=== PATIENT | female | born 1925 | race Caucasian/White ===

== ENCOUNTER 2016-10-17 12:42 | Inpatient (IN) | payer MEDICARE, OTHER ==
[~2016-10-17] VITALS: Ht 157.5 cm; Wt 71.5 kg
[2016-10-17] VITALS (10 sets, daily range): BP systolic 144–192; BP diastolic 65–85; PULSE 64–74; RESP 16–20; O2SAT 93–97
--- NOTE | 2016-10-17 13:02 | ED.REPORT ---
HPI-Stroke / CVA Oct 17, 2016 ED Provider: Dr. Kamran Wall MD An 89 year old female with a history of hypothyroidism and hypertension presents to the ED complaining of localized weakness to her right side that began at 0330. Associated symptoms include ataxia and discomfort in the right leg. Last known well 329. Patient states that her symptoms persisted to 0900 and she took 2 Aspirin. She was seen at Urgent Care this morning and was sent to the ED for further evaluation with concern for CVA. She also states that she experienced some discomfort when swallowing 2 days ago that has since improved. She denies history of TIA or back injury. Patient denies dizziness or any other concerning neurological symptoms at this time. Nursing Notes Stated Complaint: WEAKNESS/POSS TIA Chief Complaint: Neuro Symptoms/ Deficits Nursing Notes Reviewed: Yes Allergies: Coded Allergies: No Known Allergies (Unverified , 10/17/16) Scheduled ([Vit D3]) 2,000 PO BID (Reported) Amlodipine (Amlodipine) 10 Mg Tablet 10 MG PO DAILY (Reported) Aspirin Chew (Aspirin Chew) 81 Mg Chew 81 MG PO DAILY (Reported) Calcium Carbonate (Calcium) 600 Mg Tablet 600 MG PO BID (Reported) Lansoprazole (Lansoprazole) 30 Mg Capsule.dr 30 MG PO DAILY (Reported) Levothyroxine (Levothyroxine) 125 Mcg Tablet 125 MCG PO DAILY (Reported) Lutein (Lutein) 20 Mg Tablet 20 MG PO BID (Reported) Metoprolol Succinate ER (Metoprolol Succinate ER) 200 Mg Tab.er.24h 200 MG PO DAILY (Reported) Multivits-Min/FA/Lycopene/Lut (Centrum Silver Tablet) 1 Each Tablet 1 EACH PO DAILY (Reported) Omeprazole Magnesium (Prilosec Otc) 20 Mg Tablet.dr 20 MG PO DAILY (Reported) Red Yeast Rice (Red Yeast Rice) 600 Mg Capsule 600 MG PO BID (Reported) Ubidecarenone (Co Q-10) 300 Mg Capsule 300 MG PO DAILY (Reported) General Time Seen by Provider: 13:02 Chief Complaint Weakness Right-sided Hx Obtained From: Patient Arrived By: Walk-in Time last known well 033 Sudden in Onset?: No Symptom Duration: Since onset Progression Since Onset: Gradually improving Location: : Leg Quality: Painful Severity: Current: Mild Severity: Maximum: Mild Associated with: Reports: Gait problem Pertinent Negative: Pt denies other symptoms Recent Healthcare: No recent doctor visit, No recent hospitalization Risk Factors )( TPA Administration/Criteria Stroke Thrombolytic Therapy : TPA Considered: No TPA Administered Intravenously: No, not indicated NIH Stroke Scale Level of Consciousness: Alert and responsive (0) Ask Month & Age: Both questions right (0) Open/Close Eyes/Hand [employer]: Performs both tasks (0) Horizontal EO Movements: None (0) Visual Medrano: No visual loss (0) Facial Palsy: Normal symmetry (0) Right Arm Motor Drift (10s): No drift 10 sec (0) Left Arm Motor Drift (10s): No drift 10 sec (0) Right Leg Motor Drift (5s): No drift 5 sec (0) Left Leg Motor Drift (5s): No drift 5 sec (0) Limb Ataxia FNF/Heel-Michelle: No ataxia (0) Sensation (Arms/Legs/Face): No sensory loss (0) Language Aphasia: No aphasia, normal (0) Dysarthria: No dysarthria, normal (0) Extinction/Inattention: No exctinct/inattent (0) NIHSS Score: 0 Time NIHSS Performed: 13:11 )( CVA Risk Stratification No Prior CVA/TIA Risk factors reviewed Past Medical History Past Medical History Macular Degeneration (Legally blind) Thyroid disease Denies: Transient ischemic attack Past Surgical History None reported. Smoking History Unknown if Ever Smoker Social History Alcohol Use: "Social" Other Social History: Good social support, Local resident Ambulatory Status Independent Review of Systems Constitutional: Denies: Chills, Fever Respiratory: Denies: Shortness of breath Cardiovascular: Denies: Chest pain GI: Denies: Vomiting Neurologic: Reports: Focal weakness (Right leg and hip ), Problem walking, Denies: Change LOC, Dizziness Complete sys rev & neg: except as marked. Physical Exam Initial Vital Signs Vital Signs (First) Date Time Temp Pulse Resp B/P Pulse Ox O2 Delivery O2 Flow Rate FiO2 10/17/16 12:48 36.5 72 16 179/79 97 Room Air Initial VS: Reviewed Extremities: Vascular intact, Neuro intact, No swelling, No tenderness Skin: Warm, Dry, No cyanosis Psychiatric: Mood/affect normal, Behavior normal, Normal thought content General/Constitutional: Awake, Alert Head / Eyes: Atraumatic, Normocephalic, PERRL Neck: Atraumatic, Supple Respiratory / Chest: Atraumatic, Breath sounds NL, Breath sounds = bilat, No respiratory distress Cardiovascular: Heart rate NL, Regular rhythm, Heart sounds NL Neurologic: Oriented X3, Speech NL, No motor deficits, No sensory deficits, CN II - XII intact NEURO: See NIH in Risk Section Interpretation & Diagnostics Lab Results Interpretation Result Diagram: 10/17/16 1410 10/17/16 1410 Test 10/17/16 14:10 10/17/16 14:32 10/17/16 14:37 10/17/16 15:45 White Blood Count 7.3th/mm3 (3.8-10.1) Red Blood Count 4.79mil/mm3 (3.90-5.20) Hemoglobin 14.6g/dL (12.0-15.6) Hematocrit 43.7% (35.0-46.0) Mean Corpuscular Volume 91.2fL (81-100) Mean Corpuscular Hemoglobin 30.5pg (27.0-35.0) Mean Corpuscular Hemoglobin Concent 33.4% (32.0-37.0) Red Cell Distribution Width 14.3% (12.3-15.4) Platelet Count 231bil/L (150-400) Neutrophils (%) (Auto) 52.6% (40-74) Lymphocytes (%) (Auto) 31.8% (14-46) Monocytes (%) (Auto) 10.4% (4-12) Eosinophils (%) (Auto) 4.5% (0-5) Basophils (%) (Auto) 0.4% (0-3) Activated Partial Thromboplast Time 32.1sec (22.8-33.0) Sodium Level 140mEq/L (134-144) Potassium Level 4.2mEq/L (3.5-5.2) Chloride Level 101mEq/L (97-108) Carbon Dioxide Level 23mmol/L (18-29) Blood Urea Nitrogen 19mg/dL (8-27) Creatinine 0.61mg/dL (0.57-1.00) Estimat Glomerular Filtration Rate 132mL/min (>59) Glucose Level 109mg/dL (60-99) Calcium Level 9.9mg/dL (8.5-10.1) Total Bilirubin 0.6mg/dL (0.0-1.2) Aspartate Amino Transf (AST/SGOT) 27U/L (0-50) Alanine Aminotransferase (ALT/SGPT) 21U/L (0-32) Alkaline Phosphatase 56U/L (25-165) Troponin T < 0.010ug/L (0.0-0.011) Total Protein 7.7g/dL (6.4-8.4) Albumin 4.3g/dL (3.4-5.0) Magnesium Level 2.3mg/dL (1.6-2.6) Triglycerides Level 183mg/dL (0-149) Cholesterol Level 208mg/dL (100-199) LDL Cholesterol, Calculated 108.400mg/dL (0-99) VLDL Cholesterol 36.600mg/dL HDL Cholesterol 63mg/dL (>39) Cholesterol/HDL Ratio 3.30 (0.0-4.4) Urine Color Yellow (YELLOW) Urine Appearance Clear (CLEAR,HAZY) Urine pH 6.5 (5.0-8.0) Urine Specific [place] <1.005 (1.003-1.035) Urine Protein Negativemg/dL (NEG,TRACE) Urine Glucose (UA) Negativemg/dL (NEGATIVE) Urine Ketones Negativemg/dL (NEGATIVE) Urine Occult Blood Negative (NEGATIVE) Urine Nitrite Negative (NEGATIVE) Urine Bilirubin Negative (NEGATIVE) Urine Urobilinogen Normalmg/dL (NORMAL) Urine Leukocyte Esterase Trace (NEGATIVE) Urine RBC 0-2/hpf (0-2) Urine WBC 0-5/hpf (0-5) Urine Epithelial Cells Few/hpf (NONE-MOD) Urine Crystals None seen (NONE SEEN) Urine Bacteria Few/hpf (NONE-FEW) Urine Hyaline Casts None/lpf (NONE) Urine Granular Casts None seen (NONE SEEN) Urine Waxy Casts None seen (NONE SEEN) Urine Red Blood Cell Casts None seen (NONE SEEN) Urine White Blood Cell Casts None seen (NONE SEEN) Urine Mucus None seen (None Seen) Urine Trichomonas None seen (NONE SEEN) Urine Yeast None (NONE SEEN) Urinalysis Comment None Urine Culture Reflexed Indicated Prothrombin Time 10.2sec (8.1-12.5) Prothromb Time International Ratio 0.95ratio ECG Interpretation ECG Interpretation: Sinus Rhythm Rate 64 Anterior infarct, old Time: 01:41 Interpreted by: ED physician CT Head Interpretation IMPRESSION: 1. No acute intracranial abnormality. 2. 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 Dictated by: Luda Walker M.D. on 10/17/2016 at 13:40 Study: Head CT no contrast Interpretation / Wet Read by: Interpret - Radiologist Re-Eval/Medical Decision Med Decision/Clinical Course 89-year-old female with a history of hypothyroidism , hypertension, and GERD presents with trouble walking in the middle the night when she awoke to urinate. Upon awaking at 9 AM she was again unable to walk with her right leg and noticed significant weakness. She denies any pain. She has no other symptoms. Her NIH score 0, however she has significant difficulty with ambulation. She was not in the therapeutic window for TPA as we do not know her last known well time. Patient did take 2 adult aspirin around 9 AM with her symptoms. CT shows chronic versus subacute occipital lobe infarct. Her pressures have been anywhere between 120s systolic up to 200 systolic. We are allowing permissive hypertension. Patient will be admitted for stroke workup and monitoring. Strangely she has an INR of 2.6 despite taking any anticoagulation. I sent a repeat lab draw for recheck. Re-Evaluation/Progress : Time of Eval: 14:29 Patient Status: Condition improved Re-Evaluation/Progress Note: Patient is rechecked and is exhibiting an abnormal gait. She is informed of her results and the recommendation to admit. Patient agrees to obtain more imaging. Her BP spikes slightly and all questions are addressed. Consultation : Referral / Consult Name: Ramy Sy MD Consulted With: Hospitalist Call Returned at: 16:05 Environmental Management Specialist: Will see patient, Agrees with eval, Agrees with plan, Accepts admit Counseled Regarding: Diagnosis, Lab results, Need for admission Patient Discharge & Departure Impression: Primary Impression: CVA (cerebral vascular accident) CVA mechanism: unspecified Qualified Code: I63.9 - Cerebral infarction, unspecified Additional Impressions: Right leg weakness Hypertension Hypertension type: other secondary hypertension Hypertension goal: unspecified goal Qualified Code: I15.8 - Other secondary hypertension Disposition: ADMITTED TO HOSPITAL Discharge Condition All VS Reviewed: Yes Condition: Improved Referrals: Eugene Kim DO (PCP) Brodie Turcios MD (Family) Scribe Attestation Portions of this note were transcribed by Modesta Mohr. Dr. Mae Singh personally performed the history, physical exam and medical decision-making; I reviewed and confirmed the accuracy of the information in the transcribed note. Signed by: Jarrett Somers, 10/17/16 [id number]. copies to: Eugene Kim DO; Brodie Turcios MD, Gary R DO Oct 17, 2016 13:02 MODESTA MOHR Oct 17, 2016 13:05
--- NOTE | 2016-10-17 13:42 | DRSVH ---
PROCEDURE: CT BRAIN WITHOUT CONTRAST ([id number]) INDICATIONS: Stroke TECHNIQUE: Noncontrast 4.5 mm thick angled axial sections acquired from the foramen magnum to the vertex, with c oronal reformats. COMPARISON: None. FINDINGS: Image quality: Excellent. CSF spaces: Basal cisterns are patent. No extra-axial fluid collections. The ventricles are symmet felix in size and shape. Brain: No intracranial bleeds or masses. Moderate chronic versus subacute left occipital lobe infar ct. There is cerebral volume loss for age, with resultant ventricular and sulcal prominence. There a re periventricular and deep white matter chronic small vessel ischemic changes. There is intracrania l internal carotid artery atherosclerosis. Skull and face: Calvarium and visualized facial bones appear intact, without suspicious lesions. Sinuses: Visualized sinuses and mastoids are clear. IMPRESSION: 1. No acute intracranial abnormality. 2. 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 Dictated by: Luda Walker M.D. on 10/17/2016 at 13:40 Approved by: Luda Walker M.D. on 10/17/2016 at 13:40
[2016-10-17 14:42] LABS: BASOPHILS % (AUTO) 0.4 % (0-3); EOSINOPHILS % (AUTO) 4.5 % (0-5); MONOCYTES % (AUTO) 10.4 % (4-12); Mean Corpuscular Hemoglobin 30.5 pg (27.0-35.0); Mean Corpuscular Volume 91.2 fL (81-100); NEUTROPHILS % (AUTO) 52.6 % (40-74); Platelet Count 231 bil/L (150-400)
[2016-10-17 15:09] LABS: INR 2.58 ratio
--- NOTE | 2016-10-17 15:15 | NUR ---
Evaluation completed. Please go to "Notes" then click on "Assessments and Notes" (bottom left corner of screen). Then select appropriate discipline tab on top of screen.
[2016-10-17 15:20] LABS: TROPONIN T < 0.010 ug/L (0.0-0.011)
[2016-10-17 15:22] LABS: APPEARANCE,URINE CLEAR (CLEAR,HAZY); COLOR,URINE YELLOW (YELLOW); PH,URINE 6.5 (5.0-8.0)
[2016-10-17 15:23] LABS: OCCULT BLOOD,URINE NEGATIVE (NEGATIVE); UROBILINOGEN,URINE NORMAL (NORMAL)
[2016-10-17] MEDS ORDERED: UBID300C PO (15:34)
[2016-10-17] MEDS ORDERED: AMLO10TA3 PO (15:34)
[2016-10-17] MEDS ORDERED: LANS30CA PO (15:34)
[2016-10-17] MEDS ORDERED: VIT D3 PO (15:34)
[2016-10-17] MEDS ORDERED: CALC600T12 PO (15:34)
[2016-10-17] MEDS ORDERED: MULT-1073 PO (15:34)
[2016-10-17] MEDS ORDERED: LEVO125T6 PO (15:34)
[2016-10-17] MEDS ORDERED: LUTE20TA PO (15:34)
[2016-10-17] MEDS ORDERED: METO200T32 PO (15:34)
[2016-10-17] MEDS ORDERED: OMEP20TA24 PO (15:34)
[2016-10-17] MEDS ORDERED: RED600CA2 PO (15:34)
[2016-10-17] MEDS ORDERED: ASPI81TA3 PO (15:34)
[2016-10-17 16:31] LABS: INR 0.95 ratio
[2016-10-17] MEDS ORDERED: Ondansetron 2 mg/mL 2 mL Inj IVPUSH PRN (17:10)
[2016-10-17] MEDS ORDERED: Alum-Mag Hydrox-Simeth 30 mL Suspension PO PRN ×2 (17:10→17:15)
[2016-10-17] MEDS ORDERED: Polyethylene Glycol (PEG) 17 Gm Powder PO PRN (17:15)
[2016-10-17] MEDS ORDERED: Ondansetron 2 mg/mL 2 mL Inj IV PRN (17:15)
[2016-10-17 17:42] LABS: Magnesium 2.3 mg/dL (1.6-2.6)
--- NOTE | 2016-10-17 17:50 | NUR ---
admit pt arrived on unit from ED with family. VS BP 192/80 P 71 RR 18 temp 36.7, sp02 95%. notified about BP. P is A&OX4. Only residual neuro deficit is in her right leg which patient stated the she has a hard time moving it and it gives out on her. Swallow eval done in ER by speech. CVA education done with family who took booklet home. Pt is legally blind both eyes but can she large objects up close. Admit completed expect for patient care flow sheet. No c/o pain or SOB. Fall precautions in place. Pt is eating dinner.
[2016-10-17] MEDS ORDERED: Labetalol 5 mg/mL 4 mL Inj IVPUSH PRN (18:05)
--- NOTE | 2016-10-17 18:36 | PCM.HPMED ---
Subjective Date of Service Oct 17, 2016 Primary Provider: Admitting Physician: Ramy Sy MD Primary Care Physician: Eugene Kim DO Attending Physician: Ramy Sy MD Chief Complaint: Ataxia History of Present Illness: Juliana Snow is an 89 year old woman with minimal past medical history of hypothyroidism and hypertension who presented to the [facility] ED complaining of right leg weakness and ataxia that began at 3 AM when the patient woke up to use the restroom. The patient states she had difficulty walking and felt like her leg was "dancing." She noted random spasm that moved from her calf to her hip to her back and felt like she had to "flop" her leg in front of her. At 9 AM the patient took 2 81 mg ASA. She was seen in the urgent care this morning and was referred to the ED for further evaluation. The patient is on chronic daily ASA. The patient has no past history of TIA, stroke or back injury. She denies any loss of bowel or bladder function. She denies any other neurological symptoms such as slurred speech, aphasia, dizziness, seizure. In the ED her vitals were T 36.5 HR 72 RR 16 BP 179/79 with O2 sat of 97% on room air. A CT of brain was performed that showed a chronic versus subacute left occipital lobe infarct. The patient was not a candidate for tPA as her last know well is uncertain. Review of Systems: A comprehensive review of systems was conducted with the patient and found to be negative except as above in the History of Present Illness. Allergies Coded Allergies: No Known Allergies (Unverified , 10/17/16) Home Medications Scheduled ([Vit D3]) 2,000 PO BID (Reported) Amlodipine (Amlodipine) 10 Mg Tablet 10 MG PO DAILY (Reported) Aspirin Chew (Aspirin Chew) 81 Mg Chew 81 MG PO DAILY (Reported) Calcium Carbonate (Calcium) 600 Mg Tablet 600 MG PO BID (Reported) Lansoprazole (Lansoprazole) 30 Mg Capsule.dr 30 MG PO DAILY (Reported) Levothyroxine (Levothyroxine) 125 Mcg Tablet 125 MCG PO DAILY (Reported) Lutein (Lutein) 20 Mg Tablet 20 MG PO BID (Reported) Metoprolol Succinate ER (Metoprolol Succinate ER) 200 Mg Tab.er.24h 200 MG PO DAILY (Reported) Multivits-Min/FA/Lycopene/Lut (Centrum Silver Tablet) 1 Each Tablet 1 EACH PO DAILY (Reported) Omeprazole Magnesium (Prilosec Otc) 20 Mg Tablet.dr 20 MG PO DAILY (Reported) Red Yeast Rice (Red Yeast Rice) 600 Mg Capsule 600 MG PO BID (Reported) Ubidecarenone (Co Q-10) 300 Mg Capsule 300 MG PO DAILY (Reported) PMH Hypothyroidism Hypertension Macular Degeneration Surgical History Laparoscopic cholecystectomy Family History Mother and both sisters suffered strokes. Social History Hx Alcohol Use: Yes (ONE GLASS WINE DAILY) Hx Substance Use: No (Tried marinol once. ) Hx Tobacco Use: Yes Smoking Status: Former Smoker Exam Vital Signs Vital Sign - Last Date Time Temp Pulse Resp B/P Pulse Ox O2 Delivery O2 Flow Rate FiO2 10/17/16 17:43 36.7 71 18 192/80 97 Room Air Exam General: No acute distress, well-developed, well-nourished, appropriately interactive HEENT: Normocephalic, atraumatic. External ears without defect. Pupils equal, round, and reactive to light and accommodation. Anicteric sclerae, moist conjunctivae, and no lid lag. Oropharynx free of erythema and cobble stoning with moist mucosa. Neck: Supple with full range of motion. No jugular venous distension. No bruits. No lymphadenopathy or thyromegaly. Cardiovascular: Regular rate and rhythm with no murmurs, rubs, or gallops appreciated Pulmonary: Clear to auscultation bilaterally with no crackles, wheezes, or rhonchi. Normal respiratory effort with no use of accessory muscles. Abdomen: Bowel tones present. Soft, nontender, nondistended. No hepatosplenomegaly or masses appreciated. Extremities: No clubbing, cyanosis, edema, or lymphadenopathy appreciated. Skin: Normal temperature, turgor, and texture; no rash, ulcers, or subcutaneous nodules appreciated. Neurological: Cranial nerves 2-12 intact. Normal muscle strength, tone, and bulk. Reflexes, coordination, and sensory function within normal limits. Finger to nose smooth and coordinated despite blindness. Heel to ibanez smooth and coordinated. Psychiatric: Normal mood and affect. Alert and oriented to person, place, and time. Lab and Diagnostics Result Diagram: 10/17/16 1410 10/17/16 1410 X-Rays, CTs and MRIs CT BRAIN WITHOUT CONTRAST IMPRESSION: 1. No acute intracranial abnormality. 2. 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 Dictated by: Luda Walker M.D. on 10/17/2016 at 13:40 Assessment & Plan Juliana Snow is an 89 year old woman with minimal past medical history of hypothyroidism and hypertension who presented to the [facility] ED complaining of right leg weakness and ataxia that began at 3 AM when the patient woke up to use the restroom. CVA, chronicity uncertain -CT of head showed chronic versus subacute left occipital lobe infarct. Uncertain if this is the cause of her symptoms. -Lipid panel in the AM -A1C ordered -PT/ST/OT -Fall precautions -MRI of brain tomorrow -CTA of head and neck tomorrow -ECHO -Telemetry -As the patient has been on ASA chronically will start Plavix for secondary prevention -Will start Atorvastatin -Permissive hypertension Hypertension -Allow for permissive hypertension for 24 hours with SBP<180, DBP<110 Hypothyroidism -Continue Levothyroxine once patient has a swallow eval CODE STATUS: DNR/DNI Patient is admitted under inpatient status with expected length of stay greater than 2 midnights due to severity of presenting symptoms, risk of adverse event, and complexity of treatment plan. Laxmi Mckeon DO Oct 17, 2016 18:36
[2016-10-17] MEDS: Calcium Carbonate (Oyster Shell) 500 mg Tablet PO SCH (20:30)
[2016-10-17 23:15] LABS: MONOCYTES % (AUTO) 11.8 % (4-12); Mean Corpuscular Hemoglobin 30.3 pg (27.0-35.0); Mean Corpuscular Volume 92 fL (81-100); NEUTROPHILS % (AUTO) 45.6 % (40-74); Platelet Count 205 bil/L (150-400)
[2016-10-17 23:16] LABS: BASOPHILS % (AUTO) 0.4 % (0-3); EOSINOPHILS % (AUTO) 4.4 % (0-5)
[2016-10-17 23:40] LABS: Magnesium 2.3 mg/dL (1.6-2.6)
[2016-10-18] VITALS (7 sets, daily range): BP systolic 151–187; BP diastolic 69–81; PULSE 70–79; RESP 17–18; O2SAT 95–97
[2016-10-18] MEDS: Heparin 5,000 Unit/mL Inj SUBQ SCH ×3 (00:53→17:07)
[2016-10-18 05:47] LABS: BASOPHILS % (AUTO) 0.5 % (0-3); EOSINOPHILS % (AUTO) 6.2 % (0-5); MONOCYTES % (AUTO) 10.6 % (4-12); Mean Corpuscular Hemoglobin 29.9 pg (27.0-35.0); Mean Corpuscular Volume 91.8 fL (81-100); NEUTROPHILS % (AUTO) 41.3 % (40-74); Platelet Count 204 bil/L (150-400)
--- NOTE | 2016-10-18 06:18 | NUR ---
Vtach Patient had 19 beats of Vtach. Non-symptomatic. vitals stable. patient denies chest pain, no SOB, no palpitations. MD aware. labs and EKG ordered. will continue to monitor.
--- NOTE | 2016-10-18 06:19 | NUR ---
Neuros Patient c/o left facial numbness. patient states she has been having this issue for about 3 weeks but tonight it seems much worse than it has ever been. left eye lid droop noted that was not visualized at previous assessment. patient reports difficulty controlling eye lid at this time. and states my face is tingling and swollen. left leg mildly weaker than right at this time. 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 MD notified and up to see patient. no new orders continue to monitor. Patient denied any issues with left side at 0400 neuro check.
[2016-10-18] MEDS: Calcium Carbonate (Oyster Shell) 500 mg Tablet PO SCH ×2 (07:42→20:55)
--- NOTE | 2016-10-18 10:46 | DRSVH ---
PROCEDURE: MRI STROKE PROTOCOL ([id number]) Pre- and post-contrast brain MRI, non-contrast brain MR angiogram, pre- and postcontrast neck MR valeriano ogram INDICATIONS: cva TECHNIQUE: Brain: Noncontrast axial T1 spin echo, axial T2 fast spin echo, sagittal and axial FLAIR, coronal T2 fast spin echo, axial gradient echo, axial diffusion and ADC through the brain. After the administr ation of contrast, axial 3D VIBE of the cranial vasculature and brain. Brain MRA: Non-contrast 3-D time of flight MR angiogram, with multiple ukcsswq-snbehwywc-eftmuqaxuq (MIP) reformats performed. Neck MRA: Axial and sagittal TruFISP through the neck. Coronal dynamic MR angiogram during administ ration of contrast in the arterial and venous phases, with 3-dimenstional smdzbkk-sdqzqbyfb-zmepourvg n (MIP) reformats constructed from subtraction images. COMPARISON: [facility], CT, CT BRAIN WO CON, 10/17/2016, 13:33. FINDINGS: Image quality: Excellent. The ventricular system and cortical sulci demonstrate atrophy, consistent for the patient's stated ag e. There are areas of increased T2/FLAIR signal intensity within the periventricular and subcortical white matter. There is no acute intra-or extra axial fluid collection. No acute hemorrhage, mass les ion or midline shift. Brainstem is unremarkable. There is a focus of restricted diffusion within the left thalamus, with corresponding hypointense ADC and hyperintense T2/FLAIR signal intensity. Globes are symmetrical. Sinuses are aerated. Osseous structures are intact. The posterior circulation demonstrates a vertebral artery codominance. Basilar artery and posterior c erebral arteries demonstrate no areas of hemodynamically significant stenosis, vascular occlusion or aneurysmal dilation. Posterior communicating arteries are within normal limits. The anterior circulation, including the anterior and middle cerebral arteries, as well as internal ca rotid arteries demonstrates no areas of hemodynamically significant stenosis, vascular occlusion or a neurysmal dilation. The origins of the left and right common and right external carotid arteries demonstrate no areas of hemodynamically significant stenosis, vascular occlusion or aneurysmal dilation. There is an approxim ate 65% stenosis at the origin of the right internal carotid artery. There is an approximate 55% sten osis at the origin of the left external carotid artery. Origins of the left and right vertebral arter ies demonstrate no areas of hemodynamically significant stenosis, vascular occlusion or aneurysmal di lation. Aortic arch demonstrates conventional anatomy. Limited, visualized portions subclavian vascul ature are unremarkable. IMPRESSION: 1. Restricted diffusion within the left thalamus consistent with acute to subacute ischemia. No evide nce of superimposed hemorrhage. 2. Moderate chronic microvascular ischemic changes. 3. 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 4. Approximate 55% stenosis at the origin of the left external carotid artery. 5. No areas of hemodynamically significant stenosis, vascular occlusion or aneurysmal dilation within the posterior circulation. 6. No areas of hemodynamically significant stenosis, vascular occlusion or aneurysmal dilation within the anterior circulation. The estimate of stenosis included in the report of the imaging study was calculated using the NASCET method Dictated by: Rochelle Euceda M.D. on 10/18/2016 at 10:27 Approved by: Rochelle Euceda M.D. on 10/18/2016 at 10:45
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
--- NOTE | 2016-10-18 11:55 | NUR ---
Evaluation completed. Please go to "Notes" then click on "Assessments and Notes" (bottom left corner of screen). Then select appropriate discipline tab on top of screen.
--- NOTE | 2016-10-18 12:44 | PCM.PNMED ---
Subjective Date of Service Oct 18, 2016 Subjective She had 20 beats of Vtach noted on Telemetry overnight. She was asymptomatic and had an unchanged EKG. She was also moderately hypertensive due to permissive htn. This morning, she reports she is doing ok. She continues to feel weak in her right leg but denies weakness elsewhere. She has not noted any fevers, CP, SOB, or headaches. She does have macular degeneration and therefore has poor vision. She notes that she has had ambulatory difficulties for the past few years, but definitely worsened in the past day. Exam Vital Signs Vital Sign - Last Date Time Temp Pulse Resp B/P Pulse Ox O2 Delivery O2 Flow Rate FiO2 10/18/16 09:36 76 10/18/16 09:13 36.3 18 178/75 96 Room Air Intake and Output 10/17/16 10/17/16 10/18/16 Cumulative From/Thru 15:00 23:00 07:00 10/17/16 12:48 - 10/18/16 05:15 Intake Total 350 ml 110 ml 460 ml Output Total 400 ml 800 ml 1200 ml Balance -50 ml -690 ml -740 ml Intake Oral 350 ml 100 ml 450 ml IV Total 10 ml 10 ml Output Urine Total 400 ml 800 ml 1200 ml Exam General: Well developed elderly lady who appeas in No acute distress, Cooperative and speaks fluent sentences HEENT: Normocephalic, atraumatic. External ears without defect. Pupils equal, round, and reactive to light and accommodation. Anicteric sclerae, moist conjunctivae, and no lid lag. Oropharynx free of erythema and cobble stoning with moist mucosa. Neck: Supple with full range of motion. No lymphadenopathy or thyromegaly. Cardiovascular: Regular rate and rhythm with soft systolic murmur Pulmonary: Clear to auscultation bilaterally with no crackles, wheezes, or rhonchi. Normal respiratory effort Abdomen: Bowel tones present. Soft, nontender, nondistended. Extremities: No clubbing, cyanosis, edema, or lymphadenopathy appreciated. Skin: Normal temperature, turgor, and texture; no rash, ulcers, or subcutaneous nodules appreciated. Neurological: Cranial nerves 2-12 intact. Normal muscle strength, tone, and bulk. Heel to ibanez smooth and coordinated.. Gait not tested today. Mild decreased in light sensation of left face. Psychiatric: Normal mood and affect. Alert and oriented to person, place, and time. IVs and Medications Medications Reviewed: Medications were reviewed in detail Lab and Diagnostics Result Diagram: 10/18/16 [id number] X-Rays, CTs and MRIs CT BRAIN WITHOUT CONTRAST IMPRESSION: 1. No acute intracranial abnormality. 2. 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 Dictated by: Luda Walker M.D. on 10/17/2016 at 13:40 MR stroke protocol IMPRESSION: 1. Restricted diffusion within the left thalamus consistent with acute to subacute ischemia. No evidence of superimposed hemorrhage. 2. Moderate chronic microvascular ischemic changes. 3. 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 4. Approximate 55% stenosis at the origin of the left external carotid artery. 5. No areas of hemodynamically significant stenosis, vascular occlusion or aneurysmal dilation within the posterior circulation. 6. No areas of hemodynamically significant stenosis, vascular occlusion or aneurysmal dilation within the anterior circulation. The estimate of stenosis included in the report of the imaging study was calculated using the NASCET method Assessment & Plan Juliana Snow is an 89 year old woman with past medical history of hypothyroidism and hypertension who presented to the [facility] ED complaining of right leg weakness and ataxia x 1 day. She is admitted for CVA evaluation. #Acute Left Thalamic Infarct, POA -As demonstrated on MR stroke protocol, likely associated with her increased right leg ataxia and decreased sensation of left face. No signs of hemorrhage -Elevated LDL on lipid panel - Atorvastatin 40mg HS initiated -A1C pending -PT/ST/OT evaluation today -Fall precautions -MRI of brain results as above -ECHO pending -Telemetry -As the patient has been on ASA chronically and failed ,switched to plavix .will avoid dual platelet therapy with ASA/Plavix due to increased risk of bleeding complications #Non-sustained VT Had 19 beats of NSVT on 10/18. Asymptomatic, unchanged EKG. Will continue to monitor. Keep K >4.0, and Mg >2 Outpatient Cardiology f/u. #Hypertension -Will resume home medications after 24 hours of permissive htn. #Hypothyroidism -Free T4 levels - 7.66 with TSH 0.93 -Will decrease Levothyroxine levels to 100mcg daily and follow up outpatient. # H/o Macular Degeneration # Right hip pain -possibly due to osteoarthritis -will do XR CODE STATUS: DNR/DNI Dispo: Will likely require 1-2 more days for strengthening and evaluation. Pain Evaluation: Adequate Pain Control Resuscitation Status: DNR/DNI:Do Not Resuscitate/Intubate Attending Statement The patient was seen and examined together with Dr. King on 10/18/2016 and I agree with the history, exam and plan as outlined in the note above. Jose Angel King DO Oct 18, 2016 12:44 Jerel Espinoza MD Oct 18, 2016 15:41
--- NOTE | 2016-10-18 15:20 | NUR ---
Social Work Initial Assessment Data: Pt is an 89 y/o female who was admitted on 10/17/16 for CVA. Insurance is [employer] and PCP is Eugene Kim MD. Pts readmit risk score is 1. EMR reviewed. ADAN met with pt and her daughter Delma at bedside to discuss discharge planning. ADAN role explained. Pt is alert and oriented x3. Pt resides at home alone in a single level home with 2 stairs at entrance. Pt remains independent with ADLs. Pt does not drive. Pt has no HH or SNF history. Choice list provided and she expressed a preference for [facility]. Pt has not completed DPOA/Advanced Directive paperwork. SW provided information for her to review and complete and return to the hospital. Pt has [employer] intermediary care benefits and no VA benefits. PT recommends outpatient PT and a 4ww for ambulation. Pt does not drive and would prefer HH services for PT. SW will complete referral for [facility]. Prescription obtained from for walker. ADAN requested UR specialist to assist with obtaining walker for pt. Pts daughter to provide transport home at discharge. SW provided phone number and plan on white board in room. SW will continue to follow. Assessment: Pt who would benefit from HH services. Plan: Pt will discharge home via daughter with [facility] RN and PT services. UR specialist working on walker for pt. Face to face in folder. ADAN will continue to follow. Addendum: 10/18/16 at 1521 by ERIC SIMS Amended: Links added.
--- NOTE | 2016-10-18 16:48 | DRSVH ---
PROCEDURE: X-RAY RIGHT HIP COMPLETE, MINIMUM TWO VIEWS ([id number]) INDICATIONS: pain TECHNIQUE: 2 views of the hip were acquired. COMPARISON: None. FINDINGS: Bones: No fractures or dislocations. No suspicious bony lesions. The visualized pelvic ring appear s intact. Minimal hypertrophic bone indicating early joint degeneration. Soft tissues: No suspicious soft tissue calcifications or masses. Vascular calcifications indicate atherosclerosis. IMPRESSION: No displaced fracture seen. If there is continued pain, followup exam or additional elsy ging such as MRI or CT could be performed for further assessment. Dictated by: Domingo Smith Jared Interpreted: Rochelle Euceda MD on 10/18/2016 at 16:47 Transcribed by: JOSE on 10/18/2016 at 16:47 Approved by: Rochelle Euceda M.D. on 10/19/2016 at 10:45
--- NOTE | 2016-10-18 17:22 | NUR ---
Xray Right hip Patient went for Xray right hip for pain. patient received Amlodipine as ordered for blood pressure. patient is alert, calm and pleasant this shift. Denies pain or discomfort.
[2016-10-19] MEDS: Heparin 5,000 Unit/mL Inj SUBQ SCH ×2 (00:29→07:44)
[2016-10-19 00:46] VITALS: BP 159/74; PULSE 69; RESP 17; O2SAT 96
--- NOTE | 2016-10-19 05:45 | NUR ---
Neuro stable Neuro stable overnight: Alert and orientedx3, no facial droop noted,no speech difficulty, tongue midline, full strength at all extremities when tested in bed, pt states "only a little weak at right leg when get up and walk" "I am doing so much better". Sensation intact. baseline legally blind.
[2016-10-19 05:52] LABS: BASOPHILS % (AUTO) 0.5 % (0-3); EOSINOPHILS % (AUTO) 6.7 % (0-5); MONOCYTES % (AUTO) 11.7 % (4-12); Mean Corpuscular Hemoglobin 30.3 pg (27.0-35.0); Mean Corpuscular Volume 91.9 fL (81-100); NEUTROPHILS % (AUTO) 36.5 % (40-74); Platelet Count 209 bil/L (150-400)
[2016-10-19 07:31] VITALS: BP 159/71; PULSE 84; RESP 19; O2SAT 95
[2016-10-19] MEDS: Calcium Carbonate (Oyster Shell) 500 mg Tablet PO SCH (07:44)
[2016-10-19] MEDS ORDERED: MeTOProlol XL 50 mg ER24 Tablet PO SCH (08:30)
[2016-10-19] MEDS ORDERED: Fluticasone 0.05% 15 Spray/2 Gm 16 Gm Nasal Spray NASAL SCH ×2 (08:55→11:45)
[2016-10-19 09:35] VITALS: BP 177/71; PULSE 71; RESP 18; O2SAT 95
--- NOTE | 2016-10-19 09:54 | NUR ---
Social Work - Readiness for Discharge Data: EMR reviewed. Pt is on day 2 of hospitalization for CVA. Per MD in morning rounds pt may be ready to discharge later today or tomorrow. PT and ST saw pt and have cleared her to return home, PT recommending HH. SW made referral to [facility] for RN and PT. UR specialist working on obtaining FWW for pt. Pt has a friend's walker she can use for a few days post-discharge. Pt's daughter to provide transport home at discharge. SW will continue to follow. Assessment: Pt who would benefit from HH. P: Pt to discharge home when medically stable via POV. Referral made to [facility] for RN and PT. UR specialist working on obtaining FWW for pt. SW will continue to follow. NICOLE Preciado
--- NOTE | 2016-10-19 10:13 | DRSVH ---
[facility] [address] [place] [address] Echocardiogram Report Name: MAGGIE MEDEL BStudy Date: 10/19/2016 Height: 62 in Hospital Exam Location: [facility] Weight: 160 lb Gender: Female BSA: 1.7 m2 : 1925 Age: 89 yrs BP: 172/69 mm Hg Reason For Study: CVA [facility]ing [facility]: Nury Dougherty Referring Physician: Dr. Deirdre Kim Interpretation Summary The ejection fraction is estimated to be 60-65%. The E/A ratio is reversed with an elevated E/E', suggesting impaired early relaxation of the left ventricle with possible increased filling pressures. The mitral valve leaflets appear mildly thickened, but open well. There is no mitral regurgitation noted. There is mild aortic valve sclerosis. The right ventricular systolic pressure is estimated at 39 mmHg assuming a right atrial pressure of 3 mm Hg. Procedure: A two-dimensional transthoracic echocardiogram with color flow and Doppler was performed. The study quality was technically adequate. There is no prior echocardiogram noted for this patient. The patient was in normal sinus rhythm during the exam. Left Ventricle: The left ventricle is normal in size, wall thickness, and systolic function without any focal wall motion abnormalities. The ejection fraction is estimated to be 60-65%. The E/A ratio is reversed with an elevated E/E', suggesting impaired early relaxation of the left ventricle with possible increased filling pressures. Right Ventricle: The right ventricle is normal in size, thickness and function. Atria: The left atrial size is normal. Right atrial size is normal. The interatrial septum is intact with no evidence for an atrial septal defect. Mitral Valve: The mitral valve leaflets appear mildly thickened, but open well. There is no mitral regurgitation noted. Aortic Valve: The aortic valve opens well. There is mild aortic valve sclerosis. No aortic regurgitation is present. Tricuspid Valve: The tricuspid valve is normal in structure and function. There is trace tricuspid regurgitation. The right ventricular systolic pressure is estimated at 39 mmHg assuming a right atrial pressure of 3 mm Hg. Pulmonic Valve: The pulmonic valve is not well visualized. There is mild pulmonic regurgitation. Great Vessels: The aortic root is normal size. Aortic root calcification is noted. The dimensions of the ascending aorta are normal. The IVC is of normal diameter and collapses greater than 50% with a sniff. This suggests a low right atrial pressure of 3 mm Hg. Pericardium/ Pleura There is no pericardial effusion. There is no pleural effusion. MMode/2D Measurements & Calculations LVIDd: 4.1 cm LA dimension: 3.8 cm RA long axis AoV Opening LVIDs: 2.5 cm FS: 39.7 % LA A2 area: 18.6 cm RA area Ao root diam IVSd: 0.82 cm LA A4 area: 20.3 cm LVPWd: 0.77 cm LA length (vol) : 14.3 cm Aortic Jxn: 2.1 cm RA vol asc Aorta Diam LA vol: 60.4 ml : 37.4 ml LA vol index RA Ao Arch Diam (Prox : 21.5 mm2 Trans): 2.5 cm IVC diam: 1.4 cm LV tipton. diameter/BSA LV sys. diameter/BSA (cm/m^2): 2.4 (cm/m^2): 1.4 Doppler Measurements & Calculations Ao V2 max MV E max adam MV E/A: 0.78 TR max adam : 182.8 cm/sec : 81.5 cm/sec Med Peak E' Adam : 300.5 cm/sec Ao max PG MV A max adam TR max PG : 13.4 mmHg : 104.7 cm/sec E/E' med: 19.4 : 36.1 mmHg Ao mean PG MV P1/2t: 50.2 msec Lat Peak E' Adam PA V2 max : 107.7 cm/sec LVOT Max Adam E/E' lat: 20.4 PA mean PG : 87.8 cm/sec E/e' average: 19.9 sev ratio MV A dur: 0.13 sec PA Accel Time : 0.12 sec MV dec time MV P1/2t max adam Ao V2 mean LV V1 max PG : 0.17 sec : 127.9 cm/sec Ao V2 VTI: 44.7 cm LV V1 VTI: 22.5 cm MVA(P1/2t): 4.4 cm2 PA V2 mean : 77.5 cm/sec Electronically signed by: Ernesto Bernal on Reading Physician:10/19/2016 10:12 AM
[2016-10-19] MEDS ORDERED: Potassium Chloride 20 mEq SR Tablet PO ONE (10:30)
[2016-10-19 10:43] VITALS: PULSE 79
--- NOTE | 2016-10-19 12:05 | PCM.DIMED ---
Jose Angel King DO 10/19/16 1204: Discharge Instructions Date of Service Oct 19, 2016 Dates of Hospitalization Oct 17, 2016 at 16:13 Discharge Diagnosis Discharge Diagnosis #Acute Left Thalamic Infarct #Non-sustained VT #Essential Hypertension #Hypothyroidism - overtreated # H/o Macular Degeneration # Chronic Right hip pain Medication Instructions Please note the changes made to your medications Your thyroid level was too high so we decreased your Levothyroxine to 100mcg daily You will now be on both a baby aspirin and Plavix everyday for 3 months. You will also be taking Atorvastatin daily to lower your cholesterol Continue using the FLonase daily to help with your sinuses Continue your other medications as previously instructed. Diet Heart Healthy Activity No restrictions Call your provider Fever or Chills, Shortness of breath, Bleeding, Chest pain, Vomitting, Excessive diarrhea, Weakness (unilateral) Patient Instructions You are being discharged home today Continue to restrict yourself to light activity until you see your PCP. Please follow up with your PCP within 1 week. I also recommend you eat foods higher in potassium to keep your potassium levels up. Follow-up Provider: Eugene Kim DO Follow-up with PCP in: 1 week Jerle Espinoza MD 10/19/16 1338: Discharge Instructions Attending's Statement The patient was seen and examined together with Dr. King on 10/19/2016 and I agree with the discharge instructions as outlined in the note above. Jose Angel King DO Oct 19, 2016 12:04 Jerel Espinoza MD Oct 19, 2016 13:38
[2016-10-19] MEDS ORDERED: FLUT16SP NASAL (12:07)
[2016-10-19] MEDS ORDERED: CLOP75TA28 PO (12:07)
[2016-10-19] MEDS ORDERED: ATOR40TA69 PO (12:07)
[2016-10-19] MEDS ORDERED: LEVO100T6 PO (12:07)
--- NOTE | 2016-10-19 12:51 | NUR ---
Spoke with [employer] and during intake patient's daughter was called and she cancelled the request. She stated they would be getting one from someone they know. Updated [employer]
--- NOTE | 2016-10-19 13:24 | NUR ---
Discharge went over discharge instructions and medications with patient and her daughter both verbally acknowledged understanding. Removed patent intact IV and tele. Gave pt flownase that was labeled from pharmacy. Pt left in wheelchair displaying no s/s of distress at time of dc.
--- NOTE | 2016-10-19 13:40 | NUR ---
Social Work - Discharge Data: EMR reviewed. Pt is on day two of hospitalization for CVA. Pt is medically stable to discharge. PT and ST have cleared pt for home PT with HH. SW updated Benigno Wagoner [phone] at [facility] of discharge and faxed in face to face and orders for RN and PT. UR specialist confirmed with daughter that walker is no longer needed. They have obtained one on their own. Pt's daughter to provide transport home today. Pt and daughter updated and agreeable to plan. Assessment: Pt who would benefit from HH. Plan: Pt to discharge home today via POV. Face to face and orders faxed in to [facility] for RN and PT. All updated and agreeable to plan. NICOLE Preciado
--- NOTE | 2016-10-19 16:19 | PCM.DC.MED ---
Discharge Summary Date of Service Oct 19, 2016 Dates of Hospitalization Date of Hospital Admission Oct 17, 2016 at 16:13 Date of Discharge: Oct 19, 2016 Providers: Admitting Physician: Ramy Sy MD Primary Care Physician: Eugene Kim DO Attending Physician: Ramy Sy MD Diagnosis at Time of Discharge Diagnosis at Time of Discharge #Acute Left Thalamic Infarct #Non-sustained VT #Essential Hypertension #Hypothyroidism - overtreated # H/o Macular Degeneration # Chronic Right hip pain Procedures XRay, CTs & MRIs CT BRAIN WITHOUT CONTRAST IMPRESSION: 1. No acute intracranial abnormality. 2. 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 Dictated by: Luda Walker M.D. on 10/17/2016 at 13:40 MR stroke protocol IMPRESSION: 1. Restricted diffusion within the left thalamus consistent with acute to subacute ischemia. No evidence of superimposed hemorrhage. 2. Moderate chronic microvascular ischemic changes. 3. 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 4. Approximate 55% stenosis at the origin of the left external carotid artery. 5. No areas of hemodynamically significant stenosis, vascular occlusion or aneurysmal dilation within the posterior circulation. 6. No areas of hemodynamically significant stenosis, vascular occlusion or aneurysmal dilation within the anterior circulation. The estimate of stenosis included in the report of the imaging study was calculated using the NASCET method Cardiac Echo Impression Interpretation Summary The ejection fraction is estimated to be 60-65%. The E/A ratio is reversed with an elevated E/E', suggesting impaired early relaxation of the left ventricle with possible increased filling pressures. The mitral valve leaflets appear mildly thickened, but open well. There is no mitral regurgitation noted. There is mild aortic valve sclerosis. The right ventricular systolic pressure is estimated at 39 mmHg assuming a right atrial pressure of 3 mm Hg. Brief History per HPI Juliana Snow is an 89 year old woman with minimal past medical history of hypothyroidism and hypertension who presented to the [facility] ED complaining of right leg weakness and ataxia that began at 3 AM when the patient woke up to use the restroom. The patient states she had difficulty walking and felt like her leg was "dancing." She noted random spasm that moved from her calf to her hip to her back and felt like she had to "flop" her leg in front of her. At 9 AM the patient took 2 81 mg ASA. She was seen in the urgent care this morning and was referred to the ED for further evaluation. The patient is on chronic daily ASA. The patient has no past history of TIA, stroke or back injury. She denies any loss of bowel or bladder function. She denies any other neurological symptoms such as slurred speech, aphasia, dizziness, seizure. In the ED her vitals were T 36.5 HR 72 RR 16 BP 179/79 with O2 sat of 97% on room air. A CT of brain was performed that showed a chronic versus subacute left occipital lobe infarct. The patient was not a candidate for tPA as her last know well is uncertain. Hospital Course Juliana Snow is an 89 year old woman with past medical history of hypothyroidism and hypertension who presented to the [facility] ED complaining of right leg weakness and ataxia x 1 day. She is admitted for CVA evaluation. #Acute Left Thalamic Infarct, POA -As demonstrated on MR stroke protocol, likely associated with her increased right leg ataxia and decreased sensation of left face. No signs of hemorrhage -Elevated LDL on lipid panel - Atorvastatin 40mg HS initiated -A1C 5.7 -PT recommended four wheel walker usage and outpatient PT -Fall precautions -MRI of brain results as above -ECHO showed mild diastolic heart failure -Telemetry did show NSVT as below -As the patient has been on ASA chronically and failed ,switched to plavix. -Discussed patient's case further with Dr. Thomas at [facility] neurology. he recommended to be on dual antiplatelet therapy with aspirin and Plavix for 90 days, and then Plavix thereon after #Non-sustained VT Had 19 beats of NSVT on 10/18. Asymptomatic, unchanged EKG. Outpatient Cardiology f/u recommended for further evaluation #Essential Hypertension, POA -Moderately controlled with resuming patient's home medication #Hypothyroidism, POA overtreated -Free T4 levels - 7.66 with TSH 0.93 -Will decrease Levothyroxine levels to 100mcg daily and follow up outpatient. # H/o Macular Degeneration Stable, legally blind # Right hip pain -possibly due to osteoarthritis -Right hip x-ray did not show any fractures CODE STATUS: DNR/DNI Dispo: Patient was discharged home in stable condition. Exam Vital Signs (Last) Date Time Temp Pulse Resp B/P Pulse Ox O2 Delivery O2 Flow Rate FiO2 10/19/16 10:43 79 10/19/16 09:35 36.9 18 177/71 95 Room Air Exam General: Well developed elderly lady who appears in No acute distress, Cooperative and speaks fluent sentences HEENT: Normocephalic, atraumatic. External ears without defect. Pupils equal, round, and reactive to light and accommodation. Anicteric sclerae, moist conjunctivae, and no lid lag. Oropharynx free of erythema and cobble stoning with moist mucosa. Mild tenderness to palpation of left maxillary sinus Neck: Supple with full range of motion. No lymphadenopathy or thyromegaly. Cardiovascular: Regular rate and rhythm with soft systolic murmur Pulmonary: Clear to auscultation bilaterally with no crackles, wheezes, or rhonchi. Normal respiratory effort Abdomen: Bowel tones present. Soft, nontender, nondistended. Extremities: No clubbing, cyanosis, edema, or lymphadenopathy appreciated. Skin: Normal temperature, turgor, and texture; no rash, ulcers, or subcutaneous nodules appreciated. Neurological: Cranial nerves 2-12 intact. Normal muscle strength, tone, and bulk. Heel to ibanez smooth and coordinated. Slow but normal gait while using 4 Wheel Walker. Hypoesthesia of the side of face Psychiatric: Normal mood and affect. Alert and oriented to person, place, and time. Test 10/17/16 14:10 10/17/16 14:32 10/17/16 14:37 10/17/16 15:45 Activated Partial Thromboplast Time 32.1sec (22.8-33.0) Total Bilirubin 0.6mg/dL (0.0-1.2) Aspartate Amino Transf (AST/SGOT) 27U/L (0-50) Alanine Aminotransferase (ALT/SGPT) 21U/L (0-32) Alkaline Phosphatase 56U/L (25-165) Troponin T < 0.010ug/L (0.0-0.011) Total Protein 7.7g/dL (6.4-8.4) Albumin 4.3g/dL (3.4-5.0) Hemoglobin A1c 5.7% (4.8-5.6) Triglycerides Level 183mg/dL (0-149) Cholesterol Level 208mg/dL (100-199) LDL Cholesterol, Calculated 108.400mg/dL (0-99) VLDL Cholesterol 36.600mg/dL HDL Cholesterol 63mg/dL (>39) Cholesterol/HDL Ratio 3.30 (0.0-4.4) Urine Color Yellow (YELLOW) Urine Appearance Clear (CLEAR,HAZY) Urine pH 6.5 (5.0-8.0) Urine Specific [place] <1.005 (1.003-1.035) Urine Protein Negativemg/dL (NEG,TRACE) Urine Glucose (UA) Negativemg/dL (NEGATIVE) Urine Ketones Negativemg/dL (NEGATIVE) Urine Occult Blood Negative (NEGATIVE) Urine Nitrite Negative (NEGATIVE) Urine Bilirubin Negative (NEGATIVE) Urine Urobilinogen Normalmg/dL (NORMAL) Urine Leukocyte Esterase Trace (NEGATIVE) Urine RBC 0-2/hpf (0-2) Urine WBC 0-5/hpf (0-5) Urine Epithelial Cells Few/hpf (NONE-MOD) Urine Crystals None seen (NONE SEEN) Urine Bacteria Few/hpf (NONE-FEW) Urine Hyaline Casts None/lpf (NONE) Urine Granular Casts None seen (NONE SEEN) Urine Waxy Casts None seen (NONE SEEN) Urine Red Blood Cell Casts None seen (NONE SEEN) Urine White Blood Cell Casts None seen (NONE SEEN) Urine Mucus None seen (None Seen) Urine Trichomonas None seen (NONE SEEN) Urine Yeast None (NONE SEEN) Urinalysis Comment None Urine Culture Reflexed Indicated Prothrombin Time 10.2sec (8.1-12.5) Prothromb Time International Ratio 0.95ratio Test 10/17/16 22:55 10/18/16 05:07 10/19/16 05:25 Magnesium Level 2.3mg/dL (1.6-2.6) Thyroid Stimulating Hormone (TSH) 0.934uIU/mL (0.450-4.500) Free Thyroxine 7.66ng/dL (0.82-1.77) White Blood Count 6.2th/mm3 (3.8-10.1) Red Blood Count 4.55mil/mm3 (3.90-5.20) Hemoglobin 13.8g/dL (12.0-15.6) Hematocrit 41.8% (35.0-46.0) Mean Corpuscular Volume 91.9fL (81-100) Mean Corpuscular Hemoglobin 30.3pg (27.0-35.0) Mean Corpuscular Hemoglobin Concent 33.0% (32.0-37.0) Red Cell Distribution Width 14.2% (12.3-15.4) Platelet Count 209bil/L (150-400) Neutrophils (%) (Auto) 36.5% (40-74) Lymphocytes (%) (Auto) 44.4% (14-46) Monocytes (%) (Auto) 11.7% (4-12) Eosinophils (%) (Auto) 6.7% (0-5) Basophils (%) (Auto) 0.5% (0-3) Sodium Level 140mEq/L (134-144) Potassium Level 3.8mEq/L (3.5-5.2) Chloride Level 102mEq/L (97-108) Carbon Dioxide Level 24mmol/L (18-29) Blood Urea Nitrogen 16mg/dL (8-27) Creatinine 0.68mg/dL (0.57-1.00) Estimat Glomerular Filtration Rate 117mL/min (>59) Glucose Level 106mg/dL (60-99) Calcium Level 9.5mg/dL (8.5-10.1) Discharge Medications Discharge Medications ([Vit D3]) 2,000 PO BID (Reported) Amlodipine (Amlodipine) 10 Mg Tablet 10 MG PO DAILY (Reported) Aspirin Chew (Aspirin Chew) 81 Mg Chew 81 MG PO DAILY (Reported) Atorvastatin Calcium (Atorvastatin Calcium) 40 Mg Tablet 40 MG PO HS Prescribed by: PASCUAL KING DO Calcium Carbonate (Calcium) 600 Mg Tablet 600 MG PO BID (Reported) Clopidogrel (Clopidogrel) 75 Mg Tablet 75 MG PO DAILY Prescribed by: PASCUAL KING DO Fluticasone Propionate (Fluticasone Propionate Nasal) 16 Gm [place].susp 2 SPRAY NASAL DAILY Prescribed by: PASCUAL KING DO Lansoprazole (Lansoprazole) 30 Mg Capsule.dr 30 MG PO DAILY (Reported) Levothyroxine (Levothyroxine) 100 Mcg Tablet 100 MCG PO DAILY Prescribed by: PASCUAL KING DO Lutein (Lutein) 20 Mg Tablet 20 MG PO BID (Reported) Metoprolol Succinate ER (Metoprolol Succinate ER) 200 Mg Tab.er.24h 200 MG PO DAILY (Reported) Multivits-Min/FA/Lycopene/Lut (Centrum Silver Tablet) 1 Each Tablet 1 EACH PO DAILY (Reported) Omeprazole Magnesium (Prilosec Otc) 20 Mg Tablet. 20 MG PO DAILY (Reported) Red Yeast Rice (Red Yeast Rice) 600 Mg Capsule 600 MG PO BID (Reported) Ubidecarenone (Co Q-10) 300 Mg Capsule 300 MG PO DAILY (Reported) Additional med instructions Please note the changes made to your medications Your thyroid level was too high so we decreased your Levothyroxine to 100mcg daily You will now be on both a baby aspirin and Plavix everyday for 3 months. You will also be taking Atorvastatin daily to lower your cholesterol Continue using the FLonase daily to help with your sinuses Continue your other medications as previously instructed. Followup Plan Disposition: Home Discharge Diet: Heart Healthy Discharge Activity: No restrictions Patient Instructions You are being discharged home today Continue to restrict yourself to light activity until you see your PCP. Please follow up with your PCP within 1 week. I also recommend you eat foods higher in potassium to keep your potassium levels up. Follow-up Provider: Eugene Kim DO Follow-up with PCP in: 1 week Time spent 35 minutes coordinating discharge Attending Statement The patient was seen and examined together with Dr. King on 10/19/2016 and I agree with the discharge summary outlined in the note above. copies to: Eugene Kim Hong D DO Oct 19, 2016 16:18 Jerel Espinoza MD Oct 19, 2016 19:22
== END 2016-10-19 13:33 | disposition home health service (06) | DRG 66 ==
LOC: SED 12:42 → MPC 16:13
PROVIDERS: ADMIT Family Medicine; ATTEND Family Medicine
DX: I63.8 Other cerebral infarction (principal); I10 Essential (primary) hypertension; E03.9 Hypothyroidism, unspecified; K21.9 Gastro-esophageal reflux disease without esophagitis; M25.551 Pain in right hip